=== PATIENT | female | born 1985 | race Caucasian/White ===

== ENCOUNTER 2019-05-03 02:28 | Inpatient (IN) | payer OTHER ==
[~2019-05-03] VITALS: Ht 170.2 cm; Wt 97.3 kg
[2019-05-03 02:36] VITALS: Ht 170.2 cm; Wt 97.3 kg
--- NOTE | 2019-05-03 02:45 | NUR ---
PT AAOX4, PT GRIMACING IN PAIN, RESPIRATIONS EVEN AND UNLABORED. PT REPORT C/O VAGINAL BLEEDING. PT REPORTS BLEEDING STARTED X 1 MONTH AGO. PT REPORTS GOING THROUGH 6 PADS A DAY. PT REPORTS BEING SCENE AT ANOTHER ED AND BEING PRESCRIBED CONTROL. PT REPORTS GENERALIZED ABD PAIN RATED 8/10 AND NAUSEA. PT LAYING IN BED TO POSITION OF COMFORT, TALKING WITH MOTHER AT BEDSIDE.
[2019-05-03 03:18] LABS: CALCIUM 8.8 mg/dL (8.5-10.1); CARBON DIOXIDE 29.1 mmol/L (21-32); CHLORIDE SERUM 105 mmol/L (98-107); CREATININE SERUM 0.8 mg/dL (0.6-1.0); GFR1 > 60 mL/min; GLUCOSE SERUM 111 mg/dL (74-106); POTASSIUM SERUM 4.1 mmol/L (3.5-5.1); SODIUM SERUM 142 mmol/L (136-145)
[2019-05-03 03:20] LABS: BASOPHIL % 0.4 % (0-2); PLATELET COUNT 393 x10^3mcL (130-400)
[2019-05-03 03:25] LABS: ALKALINE PHOSPHATASE 58 U/L (46-116); ALT/SGPT 21 U/L (14-59); AST/SGOT 12 U/L (15-37); BILIRUBIN TOTAL 0.3 mg/dL (0.20-1.00); LIPASE 48 IU/L (73-393); TOTAL PROTEIN, SERUM 7.1 g/dL (6.4-8.2)
[2019-05-03 03:28] LABS: ALBUMIN 3.3 g/dL (3.4-5.0)
[2019-05-03 03:29] LABS: AMPHETAMINE QUAL UR NONE DETECTED (See below)
--- NOTE | 2019-05-03 03:45 | NUR ---
PT GIVEN BEDPAN TO VOID, PT C/O NAUSEA AND REPORTS UNABLE TO WALK TO RESTROOM.
--- NOTE | 2019-05-03 04:42 | NUR ---
PT LAYING IN BED TO POSITION OF COMFORT. PT C/O GEN ABD PAIN RATED 7/10 AND NAUSEA. PT MEDICATED PER ORDER.
--- NOTE | 2019-05-03 05:07 | NUR ---
PT RETURNED FROM CT WITH OUT INCIDENT.
--- NOTE | 2019-05-03 06:08 | NUR ---
PT SITTING UP IN BED, TALKING WITH MOTHER AT BEDSIDE. NO S/S OF DISTRESS NOTED.
--- NOTE | 2019-05-03 07:06 | NUR ---
REPORT GIVEN TO PUSHPA BLUM TO ASSUME CARE OF PT.
[2019-05-03] MEDS ORDERED: ATIVAN2 MG PO (07:07)
[2019-05-03] MEDS ORDERED: PIRMELLA 1/351 TAB (07:08)
[2019-05-03] MEDS ORDERED: NATURAL IRON65 MG PO (07:08)
[2019-05-03] MEDS ORDERED: FOLBIC RF1 TAB (07:09)
[2019-05-03] MEDS ORDERED: EPZICOM1 TAB (07:09)
[2019-05-03] MEDS ORDERED: MAGNESIUM OXID400 MG PO (07:09)
--- NOTE | 2019-05-03 08:02 | NUR ---
RECEIVED PT FROM ER. ADMISSION ASSESSMENT AND HISTORY IS DONE. PT STATED HER ABDOMINAL PAIN,3/10 THIS TIME IS TOLERABLE. C/O NAUSEA AND ZOFRAN IV GIVEN OREDERED. SAFTEY PRECAUTIONS ARE IN PLACE. WILL MONITOR. DAUGHTER AT BEDSIDE.
[2019-05-03 08:27] VITALS: BP 128/66
--- NOTE | 2019-05-03 09:20 | NUR ---
PT RESTING IN BED COMFORTABLY, STATED NO MORE NAUSEA.
[2019-05-03 11:37] LABS: UA SPECIFIC GRAVITY 1.015 (1.005-1.035); microscopic required? YES; urine erythrocyte 1+ (NEGATIVE)
--- NOTE | 2019-05-03 12:00 | NUR ---
PT IS SLEEPING THIS TIME. DENIES ANY PAIN. FAMILY AT BEDSIDE.
[2019-05-03 17:11] VITALS: BP 104/64
--- NOTE | 2019-05-03 19:15 | NUR ---
PT RESTING IN BED COMFORTABLY. DENIES PAIN. STABLE. GAVE REPORT TO GRAIN LOADER NURSE.
--- NOTE | 2019-05-03 19:50 | NUR ---
RECEIVED REPORT FROM DAY SHIFT RN. PT RESTING IN BED. AA&O X4. NO SOB ON ROOM AIR. NO C/O PAIN AT THIS TIME. PT STATES "HAVE NAUSEA FOR 1 MONTH". MEDICATED BY DAY SHIFT RN. PER PT, NAUSEA TOLERABLE AT THIS TIME. DENIES VOMITING. IV TO RAC, NS INFUSING. SAFETY MEASURES IN PLACE. BED IN LOWEST POSITION. SIDE RAILS UP X2. INSTRUCTED PT TO USE THE CALL LIGHT FOR ASSISTANCE. CALL LIGHT WITHIN REACH. DAUGHTER AT BEDSIDE.
[2019-05-03 21:36] VITALS: BP 107/56
--- NOTE | 2019-05-04 01:52 | NUR ---
PT C/O NAUSEA. PT STATES ZOFRAN DOES NOT RELIEVE THE NAUSEA. DR NEFF MADE AWARE. PHENERGAN GIVEN PER ORDER.
--- NOTE | 2019-05-04 02:20 | NUR ---
PT RESTING WITH EYES CLOSED. NO FACIAL GRIMACING. NO DISTRESS NOTED. CALL LIGHT WITHIN REACH. WILL CONTINUE TO MONITOR.
[2019-05-04 05:18] VITALS: BP 95/63
[2019-05-04 06:23] LABS: CALCIUM 8.2 mg/dL (8.5-10.1); CARBON DIOXIDE 24.1 mmol/L (21-32); CHLORIDE SERUM 109 mmol/L (98-107); GFR1 > 60 mL/min; GLUCOSE SERUM 92 mg/dL (74-106); MAGNESIUM 2.3 mg/dL (1.8-2.4); POTASSIUM SERUM 4.1 mmol/L (3.5-5.1); SODIUM SERUM 144 mmol/L (136-145)
[2019-05-04 06:29] LABS: BASOPHIL % 0.5 % (0-2); PLATELET COUNT 353 x10^3mcL (130-400)
--- NOTE | 2019-05-04 07:00 | NUR ---
PT RESTED AT INTERVALS DURING SHIFT. PT STATES "PHENERGAN WORKED BETTER THAN ZOFRAN SINCE SHE WAS ABLE TO SLEEP AFTER RECEIVING IT". PT REPORTED SHE TOOK ATIVAN 2 MG TAB FOR ANXIETY (HOME MEDICATION). PT STATES SHE DID NOT KNOW THAT SHE CANNOT TAKE HOME MEDS WHILE IN THE HOSPITAL. EDUCATED PT TO INFORM RN IF FEELING ANXIOUS. SAFETY MEASURES MAINTAINED. CALL LIGHT WITHIN REACH. DAUGHTER AT BEDSIDE. WILL ENDORSE CONTINUITY OF CARE TO DAY SHIFT RN.
--- NOTE | 2019-05-04 07:25 | NUR ---
RECIVED HAND OFF REPORT FROM NIGHT NURSE, PATIENT FOUND LEFT SIDE LAYING IN BED WITH EYES CLOSED, BREATHING STEADY AND UNLABORED, NO APPARENT DISTRESS AT THIS TIME. CALL LIGHT UNIQUEIN REACH, FAMILY MEMBER IN ROOM. WILL CONTINUE TO MONITOR
--- NOTE | 2019-05-04 08:25 | NUR ---
ADMINISTERED MEDICATIONS PER MAR. NO ADDITIONAL COMPLAINTS AT THIS TIME. FAMILY AT BEDSIDE, CALL LIGHT WITHIN REACH.
[2019-05-04 10:36] VITALS: BP 137/74
--- NOTE | 2019-05-04 14:01 | NUR ---
PATIENT FINISHED WITH SHOWER AND RECONNECTED TO IV FLUIDS. COMPLAINING OF NAUSEA, MEDICATED PER MAR. CALL LIGHT WITHIN REACH, TAUGHT PATIENT ABOUT HIGH PRESSURE SYSTEM OF IV PUMP AND TO KEEP ARM RELAXED AND STRAIGHT. DAUGHTER IN ROOM AT BEDSIDE. WILL CONTINUE TO MONITOR
[2019-05-04 16:30] VITALS: BP 126/76
--- NOTE | 2019-05-04 17:09 | NUR ---
ADMINSTERED MEDICATION PER MAR. ANSWERED QUESTIONS ABOUT MEDICATIONS AND SIDE EFFECTS. FAMILY AT BEDSIDE
--- NOTE | 2019-05-04 17:45 | NUR ---
PATIENT COMPLAINING OF PAIN TO IV SITE ON RIGHT AC. SWELLING NOTED, NO REDNESS. POSSIBLE INFILTRATION OF NS. REMOVED IV, CATH INTACT. NO BLEEDING FROM SITE. PROVIDED PATIENT WITH WARM PACKS TO HELP WITH PAIN. RN TO REPLACE IV
--- NOTE | 2019-05-04 18:29 | NUR ---
DR FUNEZ SAW PATIENT INFORMED PATIENT ABOUT NEED FOR EGD AND COLONOSCOPY. NEW ORDERES ENTERED INCLUDING SPECIMEN TO OBTAIN. DR FUNEZ ADDRESSED QUESTION PATIENT HAD.
--- NOTE | 2019-05-04 19:15 | NUR ---
RECEIVED PT LAYING IN BED, NO ACUTE DISTRESS OBSEREVED, DENIES PAIN OR DISCOMFORT AT THIS TIME. ABD ROUND AND SOFT WITH HYPERACTIVE BOWEL SOUNDS, C/O INTERMITTENT NAUSEA, DENIES VOMITTING OR DIARRHEA AT THIS TIME. PT AWARE OF SCHEDULED COLONOSCOPY AND EGD IN MORNING. PT GIVEN OPPORTUNITY TO ASK ANY QUESTIONS, ALL CONCERNS ADDRESSED, EDUCATION AND TEACHING REINFORED. AA/OX4, ABLE TO MAKE NEEDS KNOWN. MED-SURG, NO TELE, NO CP. PULSES PRESENT AND EQUAL THROUGHOUT, NO EDEMA. BREATHING ON RA, EVEN AND UNLABORED, NO SOB OR DYSPNEA OBSERVED. FREELY VOIDS URINE WITH BRP. AMBULATORY AND ABLE TO REPOSITION SELF IN BED. SKIN CDI. IV TO LFA IN PLACE, DRY, PATENT, INTACT, AND INFUSING IVF WELL, NO PAIN, REDNESS OR SWELLING NOTED. COMFORT AND SAFETY MEASURES IN PLACE. ALL NEEDS ASSESSED AND ATTENDED TO. CALL LIGHT WITHIN REACH. WILL CONTINUE TO MONITOR
--- NOTE | 2019-05-04 20:05 | NUR ---
CONSENT FOR EGD AND COLONOSCOPY SIGNED BY PT AND WITNESSED BY THIS RN. REINFORCED EDUCATION, ALL QUESTIONS AND CONCERNS ADDRESSED. PT EDUCATED ON NEED AND IMPORTANCE OF BOWEL PREP, PT VERBALIZED UNDERSTANDING. BOWEL PREP INITIATED ORDERED. BEDSIDE COMMODE PROVIDED AND WITHIN REACH. CALL LIGHT WITHIN REACH. WILL CONTINUE TO MONITOR
[2019-05-04 20:59] VITALS: BP 129/77
--- NOTE | 2019-05-04 21:15 | NUR ---
PT'S TEMP THIS EVENING, 100.6. COOLING MEASURES INITIATED. MEDICATED WITH PRN TYLENOL PER EMAR
[2019-05-05 06:01] VITALS: BP 140/70
[2019-05-05 06:29] LABS: BASOPHIL % 0.5 % (0-2); PLATELET COUNT 371 x10^3mcL (130-400)
--- NOTE | 2019-05-05 06:50 | NUR ---
REPORT GIVEN TO OMAR IN GI. ALL QUESTIONS AND CONCERNS ADDRESSED. ALL CARES ENDORSED. SIGNED CONSENTS AND CHECKLIST IN CHART.
[2019-05-05 06:51] LABS: RED CELL DISTRIBUTION WIDTH 18.2 % (11.5-14.5)
[2019-05-05 06:59] LABS: CALCIUM 8.6 mg/dL (8.5-10.1); CARBON DIOXIDE 20.8 mmol/L (21-32); CHLORIDE SERUM 107 mmol/L (98-107); CREATININE SERUM 0.9 mg/dL (0.6-1.0); GFR1 > 60 mL/min; GLUCOSE SERUM 92 mg/dL (74-106); MAGNESIUM 2.2 mg/dL (1.8-2.4); PHOSPHOROUS 2.9 mg/dL (2.5-4.9); POTASSIUM SERUM 3.7 mmol/L (3.5-5.1); SODIUM SERUM 142 mmol/L (136-145)
--- NOTE | 2019-05-05 07:54 | NUR ---
A+OX4, NO RESPIRATORY DISTRESS NOTED, DENIES PAIN, MEDSURG, PULSES MODERATE AND EQUAL DORY, NO EDEMA NOTED, LUNG SOUNDS CTA TOLERATING RA, BOWEL SOUNDS HYPERACTIVE, PT HAVING YELLOW LIQUID BM SINCE RECEIVING BOWEL PREP, VOIDING FREELY, AMBULATORY, SKIN INTACT, IV IN LFA WITH NS @ 50 ML/HR, SITE WNL.
--- NOTE | 2019-05-05 08:21 | NUR ---
PT OFF UNIT FOR EGD/COLONOSCOPY.
--- NOTE | 2019-05-05 10:37 | NUR ---
PT BACK ON UNIT FROM EGD/COLONSCOPY, NO RESPIRATORY DISTRESS NOTED, DENIES PAIN COMPLAINING OF NAUSEA, DECLINED NAUSEA MED, REQUESTING SPRITE, PT GIVEN SPRITE AND DAVID FAVIOLA, DAUGHTER AT BEDSIDE, CALL LIGHT WITHIN REACH.
[2019-05-05 10:42] VITALS: BP 123/85
--- NOTE | 2019-05-05 12:15 | NUR ---
PT RESTING IN BED, NO RESPIRATORY DISTRESS NOTED, DENIES PAIN, DENIES NAUSEA, DAUGHTER AT BEDSIDE, CALL LIGHT WITHIN REACH.
--- NOTE | 2019-05-05 13:42 | NUR ---
PT RESTING IN BED, COMPLAINING OF NAUSEA AND 3/10 ABD PAIN, DECLINES NAUSEA MEDS AND PAIN MEDS, NO RESPIRATORY DISTRESS NOTED, DAUGHTER AT BEDSIDE, CALL LIGHT WITHIN REACH.
--- NOTE | 2019-05-05 14:27 | NUR ---
PT RESTING IN BED, NO RESPRIATORY DISTRESS NOTED, APPEARS TO BE SLEEPING, DAUGHTER AT BEDSIDE, CALL LIGHT WITHIN REACH.
--- NOTE | 2019-05-05 15:58 | NUR ---
PT COMPLAINING OF NAUSEA, DECLINES NAUSEA MEDS, NO RESPRIATORY DISTRESS NOTED, DAUGHTER AT BEDSIDE, CALL LIGHT WITHIN REACH.
[2019-05-05 16:40] VITALS: BP 118/60
--- NOTE | 2019-05-05 17:58 | NUR ---
PT COMPLAINING OF HARRIS, TYLENOL PO GIVEN, NO RESPIRATORY DISTRESS NOTED, DAUGHTER AT BEDSIDE, DR AKINS AT BEDSIDE, CALL LIGHT WITHIN REACH.
--- NOTE | 2019-05-05 18:55 | NUR ---
PT RESTING IN BED, STATES SHE FEELS HOT, TEMP CHECKED: 98.8.
--- NOTE | 2019-05-05 19:30 | NUR ---
RECEIVED SITTING UP IN BED, NO ACUTE DISTRESS OBSEREVED, DENIES PAIN OR DISCOMFORT AT THIS TIME. ABD ROUND AND SOFT WITH ACTIVE BOWEL SOUNDS, C/O INTERMITTENT NAUSEA, DENIES VOMITTING OR DIARRHEA AT THIS TIME. ADVANCED TO REGULAR DIET, TOLERATING WELL. AA/OX4, ABLE TO MAKE NEEDS KNOWN. MED-SURG, NO TELE, NO CP. PULSES PRESENT AND EQUAL THROUGHOUT, NO EDEMA. BREATHING ON RA, EVEN AND UNLABORED, NO SOB OR DYSPNEA OBSERVED. FREELY VOIDS URINE WITH BRP. AMBULATORY AND ABLE TO REPOSITION SELF IN BED. SKIN CDI. IV TO LFA IN PLACE, DRY, PATENT, INTACT, AND INFUSING IVF WELL, NO PAIN, REDNESS OR SWELLING NOTED. COMFORT AND SAFETY MEASURES IN PLACE. ALL NEEDS ASSESSED AND ATTENDED TO. CALL LIGHT WITHIN REACH. WILL CONTINUE TO MONITOR
--- NOTE | 2019-05-05 19:40 | NUR ---
ENDORSED CARE TO GARY BLUM.
[2019-05-05 20:41] VITALS: BP 113/58
--- NOTE | 2019-05-05 20:46 | NUR ---
PT AND MOTHER AT BEDSIDE, CONCERNED WITH CT ABD PELVIS RESULTS REGARDING IN PROGRESS VS RETAINED PRODUCTS OF CONCEPTION. EDUCATED ON PT'S HCG SERUM LEVELS X2 WERE NEGATIVE. ALSO CONCERNED REGARDING EGD AND COLONOSCOPY RESULTS. MADE AWARE OF MILD GASTRITIS, EDUCATED PT ON DIET, EXERCISE AND LIFESTYLE MODIFICATIONS. PT ADMITS DIET AT HOME CONSISTS OF FAST FOOD AND STARBUCKS EVERY DAY DUE TO WORK SCHEDULE. ALL QUESTIONS AND CONCERNS ADDRESSED.
--- NOTE | 2019-05-06 03:17 | NUR ---
PT C/O NAUSEA AND HEADACHE, REQUESTED MEDICATION. GIVEN PHERNERGRAN SLOW IVP DILUTED WITH 15 ML NS AND TYLENOL PRN PER EMAR. EMESIS BAG PROVIDED. CALL LIGHT WITHIN REACH. WILL CONTINUE TO MONITOR
--- NOTE | 2019-05-06 05:10 | NUR ---
NO SIGNIFICANT CHANGES TO REPORT, PT COMPLIED WITH NURSING CARE THROUGHOUT THE SHIFT WITH NO ACUTE EVENTS OVERNIGHT. NO ACUTE DISTRESS OBSERVED AT THIS TIME, PT LAYING IN BED, BREATHING EVEN AND UNLABORED. COMFORT AND SAFETY MEASURES MAINTAINED. ALL NEEDS ASSESSED AND ATTENDED TO. CALL LIGHT WITHIN REACH. WILL CONTINUE TO MONITOR AND ENDORSE CARE TO DAY SHIFT NURSE
[2019-05-06 05:41] VITALS: BP 120/60
[2019-05-06 06:16] LABS: BASOPHIL % 0.4 % (0-2); PLATELET COUNT 341 x10^3mcL (130-400)
[2019-05-06 06:23] LABS: CALCIUM 8.8 mg/dL (8.5-10.1); CARBON DIOXIDE 25.4 mmol/L (21-32); CHLORIDE SERUM 106 mmol/L (98-107); CREATININE SERUM 0.9 mg/dL (0.6-1.0); GFR1 > 60 mL/min; GLUCOSE SERUM 102 mg/dL (74-106); POTASSIUM SERUM 4.2 mmol/L (3.5-5.1); SODIUM SERUM 142 mmol/L (136-145)
[2019-05-06 06:47] LABS: RED CELL DISTRIBUTION WIDTH 18.9 % (11.5-14.5)
--- NOTE | 2019-05-06 08:04 | NUR ---
RECEIVED SLEEPING AT THIS TIME AND FAMILY AT BEDSIDE. NO ACUTE DISTRESS NOTED. WILL CONTINUE TO MONITOR.
[2019-05-06 09:45] VITALS: BP 122/64
--- NOTE | 2019-05-06 10:00 | NUR ---
PATIENT AWAKE AND TOLERATED DIET AND FLUIDS WELL. SHE HAS BEEN CONCERNED ABOU THER RESULTS OF TESTING AND ADVISED THAT SHE SHOULD FOLLOW UP WITH HER OB AND SHE STAETS SHE HAS NOT FOR SOME TIME NOW. PATIENT HAS HX OF ENDOMETRIOSIS AND SHE HAS VAGINAL BLEEDING BETWEEN PERIODS AND SHE HAS ANEMIA. SHE SHOULD FOLLOW UP WTO SEE IF SHE HAS THE NEED FOR OB INTERVENTION. SHE HAS BEEN WITH STOMACH UPSET AND SHE HAS NOT HAD DIARRHEA OR ANY VOMITING TODAY BUT SHE STATES ESHE HAD AT HOME PRIOR TO COMING TO THE HOSPITAL. SHE AHS BEEN ON MEDICAITON FOR HER ANEMIA. THE EGD AND COLONOSCOPY HAS BEEN SHOWN BOTH NEGATIVE. SHE HAS HX OF CANCERS IN HER FAMILY AND IS NATURALLY CONCERNED. SHE IS SUPRISED THAT NOTHING CAN BE FOUND. PER DR FUNEZ IT MAY WELL BE DRUG INDUCED GASTRITIS FROM IRON AND HER PROGESTRONE SHE IS TAKING FOR HER VAGINAL BLEEDING. THE H PYLORI HAS NOT BEEN RESULTED SO FAR AND WILL AWAIT RESULTS. SHE HAS NO INDICATION OF BLOODY STOOLS OR NAUSEA AT THIS TIME.
[2019-05-06] MEDS ORDERED: ZOF4 PO (12:00)
[2019-05-06 12:32] VITALS: BP 122/64
--- NOTE | 2019-05-06 13:52 | NUR ---
PATIENT EXPRESSED CONCERN ABOUT HER NEW ONSET OF THROAT, EAR AND NECK SWELLING. CALLED THE BUSINESS OB[employer]S AND SHE CAME TO SEE THE PATIETN AND REFERED HER TO THE FACT THAT SOMETIMES THE THROAT IS SORE POST THE EGD. PATIENT IS TO FOLLOW UP WITH THE PRIMARY IF ANY FURTHER ISSUES OR DOES NOT IMPROVE. DISCHARGE PAPERWORK GIVEN ADN IV REMOVED PRIOR TO DISCHARGE.
== END 2019-05-06 13:45 | disposition home or self-care (01) | DRG 249 ==
LOC: ED 02:28 → MU 06:03
PROVIDERS: Emergency Medicine; Internal Medicine; Internal Medicine Gastroenterology; ADMIT Internal Medicine
PROC: 0DB68ZX Excision of Stomach, Via Natural or Artificial Opening Endoscopic, Diagnostic (ICD-10-PCS; principal; 2019-05-05 09:00)
PROC: 0DJD8ZZ Inspection of Lower Intestinal Tract, Via Natural or Artificial Opening Endoscopic (ICD-10-PCS; 2019-05-05 09:00)
DX: K52.9 Noninfective gastroenteritis and colitis, unspecified (principal); D64.9 Anemia, unspecified; K29.60 Other gastritis without bleeding; N93.8 Other specified abnormal uterine and vaginal bleeding; Z68.32 Body mass index [BMI] 32.0-32.9, adult; Z88.6 Allergy status to analgesic agent; Z88.0 Allergy status to penicillin
CPT/HCPCS: 43235; 45378; G0378; J1200; J1610; J1885; J1956; J2060; J2250; J2310; J2405; J2550; J2765; J3010; J3490; J7030; Q0092; Q9967

== ENCOUNTER 2019-05-25 23:15 | Emergency (ER) | payer OTHER ==
[~2019-05-25] VITALS: Ht 170.2 cm; Wt 96.2 kg
[~2019-05-25 23:15] MED LIST: ATIVAN2 MG PO; EPZICOM1 TAB; FOLBIC RF1 TAB; MAGNESIUM OXID400 MG PO; NATURAL IRON65 MG PO; PIRMELLA 1/351 TAB; ZOF4 PO
[2019-05-25 23:26] VITALS: Ht 170.2 cm; Wt 96.2 kg
[2019-05-26 00:38] LABS: BASOPHIL % 0.3 % (0-2); PLATELET COUNT 387 x10^3mcL (130-400)
[2019-05-26 00:40] LABS: RED CELL DISTRIBUTION WIDTH 17.1 % (11.5-14.5)
[2019-05-26 00:54] LABS: CALCIUM 8.5 mg/dL (8.5-10.1); CARBON DIOXIDE 27.4 mmol/L (21-32); CHLORIDE SERUM 103 mmol/L (98-107); CREATININE SERUM 0.9 mg/dL (0.6-1.0); GFR1 > 60 mL/min; GLUCOSE SERUM 119 mg/dL (74-106); SODIUM SERUM 141 mmol/L (136-145)
[2019-05-26 01:00] LABS: ALBUMIN 3.6 g/dL (3.4-5.0); ALKALINE PHOSPHATASE 52 U/L (46-116); ALT/SGPT 17 U/L (14-59); AMYLASE 27 U/L (25-115); AST/SGOT 12 U/L (15-37); BILIRUBIN TOTAL 0.2 mg/dL (0.20-1.00); LIPASE 62 IU/L (73-393); TOTAL PROTEIN, SERUM 7.8 g/dL (6.4-8.2)
[2019-05-26 04:51] VITALS: BP 131/63
== END 2019-05-26 04:51 | disposition home or self-care (01) ==
LOC: ED 23:15
PROVIDERS: Emergency Medicine
DX: R10.13 Epigastric pain (principal); R19.7 Diarrhea, unspecified; R11.2 Nausea with vomiting, unspecified; Z88.0 Allergy status to penicillin; Z98.890 Other specified postprocedural states
CPT/HCPCS: J1885; J2405; J7030